=== PATIENT | female | born 1980 | race Caucasian/White ===

== ENCOUNTER 2019-04-30 01:00 | Emergency (ER) | payer BC, OTHER ==
[~2019-04-30] VITALS: Ht 167.6 cm; Wt 59.0 kg
[2019-04-30 01:18] VITALS: BP 143/93
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
== END 2019-04-30 01:45 | disposition home or self-care (01) ==
LOC: ER 01:02
DX: S02.2XXA Fracture of nasal bones, initial encounter for closed fracture (principal); S09.8XXA Other specified injuries of head, initial encounter; Y08.89XA Assault by other specified means, initial encounter; Y93.89 Activity, other specified; Y92.89 Other specified places as the place of occurrence of the external cause; Y99.8 Other external cause status